=== PATIENT | female | born 1940 | race Caucasian/White ===

== ENCOUNTER → 2016-11-19 | Outpatient (CLI) | payer MEDICARE, OTHER ==
[~2016-11-19] VITALS: Ht 162.6 cm; Wt 58.2 kg
[~2016-11-19] MED LIST: AMLO-147 PO
[2016-11-19 15:05] VITALS: BP_SYST 179; BP_SYST 194; BP_DIAS 87; BP_DIAS 88; PULSE 111; RESP 18; Ht 162.6 cm; Wt 58.2 kg
[2016-11-19 15:31] VITALS: PULSE 81
--- NOTE | 2016-11-19 16:35 | PN ---
Date/Time of Note Date/Time of Note DATE: 11/19/16 TIME: 15:09 Assessment/Plan Assessment/Plan Assessment/Plan [facility] Progress Note Date of Service: 11/19/2016 Today's Impression & Plan: Stable and improved post lap appy. No complications or SSI's. Urinary retention resolved. With above assessment, I've recommended the following for today: 1. F/u with PCP 2. F/u with us prn Thank you again for allowing us to participate in the care of this very pleasant lady and her wonderful family. If there are any questions, please feel free to call me at area code [phone]. Nature presenting problem: High risk Complexity decision making: High complexity Please note: Spelling or grammatical errors in this note are likely due to EHR/ dictation systems and are not reflective of patient care quality. Occasional wrong-word or sound-alike substitutions may have occurred due to the inherent limitations of voice recognition software. Please read the chart carefully and recognize, using context, where the substitutions have occurred. The chart may also contain mistakes due to difficulties with voice recognition software. Also please note that the dictation timestamp of this note does not necessarily reflected time of the visit for this service. Updated clinical summary: A very pleasant 76-year-old lady with a few comorbidities presenting with possible acute appendicitis, possible pancreatitis, and hypokalemia. S/p laparoscopic appendectomy [facility] 10/30/16. Comorbidities: 1. Acute appendicitis; s/p laparoscopic appendectomy [facility] 10/30/16 2. Hypokalemia 3. Hemorrhoids 4. BMI 25.1 5. Status post tubal ligation in the 1970s 6. Status post removal of benign mass from left breast in the 70s 7. Hypertension Subjective: No major events or complaints since discharge. No major pain complaints and reportedly under control with medications. No N/V, SOB or CP. + bowel activity; urinary retention which was an issue inhouse has since been resolved; able to urinate on her own Objective: Vitals: reviewed; please also see EHR Physical Exam: Lungs: breathing comfortably without tachypnea; no audible wheezes, rales or rhonchi on gross exam Abd: Soft, mildly tender to palpation in the right lower quadrant, and non- distended; no peritoneal signs or guarding; incision dressings c/d/i w/o obvious underlying e/e/d/h Skin: Appears pink and feels warm to touch. Neuro: Awake, alert and follows commands appropriately Exam/Review of Systems Vital Signs Vitals Vital Signs Date Time Temp Pulse Resp B/P Pulse Ox O2 Delivery O2 Flow Rate FiO2 11/19/16 15:31 97.8 81 11/19/16 15:05 18 194/87 96 Room Air 179/88 SAM MARTÍNEZ M.D. Nov 19, 2016 15:19
== END | disposition home or self-care (01) ==
LOC: HPC 14:55
PROVIDERS: ATTEND Transplant Surgery
DX: K35.80 Unspecified acute appendicitis (principal); I10 Essential (primary) hypertension; E87.6 Hypokalemia; K64.9 Unspecified hemorrhoids

== ENCOUNTER 2017-04-08 07:02 | Day surgery (SDC) | END 2017-04-08 15:30 | disposition home or self-care (01) ==